=== PATIENT | male | born 1950 | race Hispanic/Latino ===

== ENCOUNTER 2018-07-05 22:08 | Inpatient (IN) | payer MEDICARE, OTHER ==
[~2018-07-05] VITALS: Ht 172.7 cm; Wt 93.6 kg
[~2018-07-05 22:08] MED LIST: GLUCOPHAGE XL500 MG PO; Z.0.AMARYL4 MG PO; Z.0.AVODART0.5 MG PO; Z.0.CRESTOR5 MG PO; Z.0.FLOVENT DISKUS50; Z.0.LANTUS100 UNIT/1 SQ; Z.0.LOPRESSOR100 MG PO; Z.0.LOPRESSOR50 MG PO; Z.0.NORVASC10 MG PO; Z.0.PREDNISONE10 MG PO; Z.0.PRINIVIL10 MG PO; Z.0.ULTRAM50 MG PO; Z.0.VICODIN 5-5001 E PO; Z.0.WARFARIN SODIUM5 PO; [UNRECOGNIZED DRUG - OTHER] IV; [UNRECOGNIZED DRUG - OTHER] PO
[2018-07-05] MEDS ORDERED: SODIUM CHLORIDE 0.9% 1000ML 1,000 ML IV STA (22:32)
[2018-07-05] MEDS ORDERED: ONDANSETRON HCL INJ 2MG/ML 2ML 2 MG/ML VIAL IV STA (22:32)
[2018-07-05] MEDS ORDERED: PANTOPRAZOLE 40 MG 10ML VIAL IV STA (22:32)
[2018-07-05] MEDS ORDERED: MORPHINE SULFATE 5 MG/ML VIAL IV ONE (23:15)
[2018-07-05 23:16] LABS: BASOPHILS # (AUTO) 0.1 (0.0-0.1); BASOPHILS % 0.5 % (0.0-1.0); EOSINOPHILS # (AUTO) 0.1 (0.0-0.4); EOSINOPHILS % 1.3 % (0.0-6.0); HEMATOCRIT 38.8 % (38.2-49.6); HEMOGLOBIN 13.4 g/dL (14.0-18.0); LYMPHOCYTES # (AUTO) 3.3 (1.0-3.2); LYMPHOCYTES % 33.5 % (18.0-39.1); MEAN CORPUSCULAR HEMOGLOBIN 31.1 pg (28-32); MEAN CORPUSCULAR HGB CONC 34.5 g/dL (31-35); MONOCYTES % 9.7 % (4.4-11.3); NEUTROPHILS # (AUTO) 5.5 (2.1-6.9); NEUTROPHILS % 54.7 % (38.7-80.0); PLATELET COUNT 230 x10e3/uL (140-360); RED BLOOD COUNT 4.31 x10e6/uL (4.3-5.7)
[2018-07-05 23:21] LABS: INR 0.83; PARTIAL THROMBOPLASTIN TIME 30.6 seconds (23.8-35.5); PROTHROMBIN TIME 12.2 seconds (11.9-14.5)
[2018-07-05] MEDS ORDERED: MORPHINE SULFATE INJ 4 MG/ML INJ 1ML ONE (23:25)
[2018-07-05 23:31] LABS: ALBUMIN 4.5 g/dL (3.5-5.0); ALBUMIN/GLOBULIN RATIO 1.2 (0.8-2.0); CALCIUM 10.7 mg/dL (8.4-10.2); CREATININE, SERUM 2.37 mg/dL (0.72-1.25); MAGNESIUM 2.1 MG/DL (1.3-2.1)
[2018-07-05 23:38] LABS: CREATINE KINASE MB 1.5 ng/mL (0-5.0)
[2018-07-06 00:55] LABS: CLARITY,URINE CLOUDY (CLEAR); COLOR,URINE YELLOW (YELLOW); LEUKOCYTE ESTERASE ,URINE 1+ (NEGATIVE); NITRITE,URINE NEGATIVE (NEGATIVE); PROTEIN,URINE DIPSTICK NEGATIVE (NEGATIVE)
[2018-07-06 00:56] LABS: BILIRUBIN,URINE NEGATIVE (NEGATIVE); KETONES,URINE NEGATIVE (NEGATIVE); URINE UROBILINOGEN 0.2 mg/dL (0.2 - 1)
[2018-07-06 01:03] LABS: CHOL/HDL RATIO 4.7 (3.9-4.7); CHOLESTEROL 149 MD/DL (0-199); HDL CHOLESTEROL 32 MG/DL (40-60); TRIGLYCERIDES 687 MG/DL (0-149)
--- NOTE | 2018-07-06 01:12 | Diagnostic Imaging Report ---
CT Abdomen and Pelvis without contrast INDICATION: Mid epigastric pain TECHNIQUE: Thin collimation axial images obtained from the diaphragm to the level of the pubic symphysis without nonionic intravenous contrast. Dose reduction techniques used: Automated exposure control, adjustment of the mAs and/or kVp according to patient size, standardized low-dose protocol, and/or iterative reconstruction technique. RADIATION DOSE: Total DLP: 576.6 mGy*cm Estimated effective dose: (DLP x 0.015 x size factor) mSv CTDIvol has been reviewed. It is below the limits set by the Radiation Protocol Committee (RPC). COMPARISON: None. ABDOMEN FINDINGS: Lung Bases: Clear. The visualized portion of the mediastinum is normal. Liver: Decreased attenuation. No mass. The right lobe measures 20 cm in length. Gallbladder: Present and appears normal. No ductal dilatation. Pancreas: Mild fatty atrophy. No mass or ductal dilatation. Spleen: Normal size without mass. Adrenal Glands: The right adrenal gland is normal. Nodule in the left adrenal gland measures 1.4 x 1.2 cm and 21 Hounsfield units. This is located in the medial limb. Kidneys: Right: No renal calculus. No cortical mass or hydronephrosis Left: No renal calculus. No cortical mass or hydronephrosis Lymph Nodes: No enlarged abdominal or retroperitoneal lymph nodes. Aorta: Normal in diameter with diffuse calcifications. PELVIS FINDINGS: Bowel: Stomach: Distended with fluid, likely water. No mural thickening or perigastric inflammation. No hiatal hernia. Small Bowel: Small bowel loops measure up to 3.9 cm in diameter. Small amount of inspissated enteric material. Round, intraluminal high attenuating focus in a segment of proximal jejunum measures 9 mm and may represent food or medication. Large Bowel: Diverticulosis coli, particularly of the sigmoid colon without associated inflammation. Appendix: Normal. Bladder: Well distended with mild circumferential mural thickening. The prostate gland measures 5.6 x 6.0 cm with calcifications of the transition zone. Ureters: No ureteral dilatation or calculus. Peritoneum/retroperitoneum: No free fluid or fluid collection. Bones: Interbody fusion of L5-S1. No compression deformities or listhesis. Soft tissues: Fat-containing umbilical hernia has an aperture of 17 mm. IMPRESSION: 1. Distended small bowel loop containing inspissated enteric material suggestive of mild ileus or very low-grade partial small bowel obstruction. Food or medication in the proximal jejunum as described above. 2. Diverticulosis coli. No evidence for bowel obstruction or inflammation. 3. Steatosis. 4. Prostate hypertrophy. 5. Left adrenal nodule, higher in attenuation than what would be expected for an adenoma. Recommend further characterization with MRI of the adrenal glands on an outpatient basis. Signed by: Dr. Darcy Parra MD on 07/06/2018 1:09 AM
--- NOTE | 2018-07-06 01:14 | Diagnostic Imaging Report ---
EXAMINATION: CHEST SINGLE (PORTABLE) COMPARISON: Chest x-ray 10/06/2011 INDICATION: Chest/midepigastric pain ^ABD/CP ^[id number] ^0030 DISCUSSION: Frontal view of the chest obtained at 0033 hours. HEART AND MEDIASTINUM: The cardiomediastinal silhouette is unremarkable. LINES: None. LUNGS: Lung volumes are low. Mild bibasilar atelectasis. No pneumonia or pulmonary edema. PLEURA: No pleural effusion or pneumothorax. BONES AND SOFT TISSUES: No focal osseous lesion. The soft tissues are normal. IMPRESSION: Low lung volumes. No acute cardiopulmonary process. Signed by: Dr. Darcy Parra MD on 07/06/2018 1:10 AM
[2018-07-06 01:17] LABS: B-TYPE NATRIURETIC PEPTIDE2 27.5 pg/mL (0-100)
[2018-07-06 01:34] LABS: BACTERIA,URINE MANY /HPF; EPITHELIAL CELLS,URINE FEW /LPF; RBC,URINE 0-5 /HPF (0-5); WBC,URINE (MAN) 21-50 /HPF (0-5)
[2018-07-06] MEDS ORDERED: PROMETHAZINE 12.5MG/ NACL 0.9% 12.5 MG/50 ML BAG IV PRN (02:30)
[2018-07-06] MEDS ORDERED: ONDANSETRON HCL INJ 2MG/ML 2ML 2 MG/ML VIAL IV PRN (02:30)
--- OUTSIDE RECORDS SUMMARY | 2018-07-06 02:36 | XMS REPORT ---
Author Author [facility] Address Unknown Phone Unavailable Care Team Providers Care [facility] Name Role Phone Pauline BA Unavailable Unavailable Problems This patient has no known problems. Allergies, Adverse Reactions, Alerts This patient has no known allergies or adverse reactions. Medications This patient has no known medications. Results Test Description Test Time Test Comments Text Results Atomic Results Result Comments CHEST SINGLE (PORTABLE) 2018-07-06 01:09:00 [place] [address] Patient Name: MIKE RAINEY MR #: [id number] : 1950 Age/Sex: 67/M Req #: [id number] Adm Physician: Ordered by: ISMAEL BA MD Report #: [id number] Location: ER Room/Bed: Procedure: [id number] DX/CHEST SINGLE (PORTABLE) Exam Date: 07/06/18 Exam Time: 0030 REPORT STATUS: Signed EXAMINATION: CHEST SINGLE (PORTABLE) COMPARI SON: Chest x-ray 10/06/2011 INDICATION: Chest/midepigastric pain ABD/CP [id number] 0030 DISCUSSION: Frontal view of the chest obtained at 0033 hours. HEART AND MEDIASTINUM: The cardiomediastinal silhouette is unremarkable. LINES: None. LUNGS: Lung volumes are low. Mild bibasilar atelectasis. No pneumonia or pulmonary edema. PLEURA: No pleural effusion or pneumothorax. BONES AND SOFT TISSUES: No focal osseous lesion. The soft tissues are normal. IMPRESSION: Low lung volumes. No acute cardiopulmonary process. Signed by: Dr. Laureen Parra MD on 07/06/2018 1:10 AM Dictated By: LAUREEN PARRA MD 9 Transcribed By: JOSÉ MIGUEL on 07/06/18109 COPY TO: ISMAEL BA MD CT ABDOMEN/PELVIS WO 2018-07-06 00:45:00 [place] [address] Patient Name: MIKE RAINEY MR #: [id number] : 1950 Age/Sex: 67/M Req #: [id number] Adm Physician: Ordered by: ISMAEL BA MD Report #: [id number] Location: ER Room/Bed: Procedure: [id number] CT/CT ABDOMEN/PELVIS WO Exam Date: 07/06/18 Exam Time: 0022 REPORT STATUS: Signed CT Abdomen and Pelvis without contrast INDICATION: Mid epigastric pain TECHNIQUE: Thin collimation axial images obtained from the diaphragm to the level of the pubic symphysis without nonionic intravenous contrast. Dose reduction techniques used: Automated exposure control, adjustment of the mAs and/or kVp according to patient size, standardized low- dose protocol, and/or iterative reconstruction technique. RADIATION DOSE: Total DLP: 576.6 mGy*cm Estimated effective dose: (DLP x 0.015 x size factor) mSv CTDIvol has been reviewed. It is below the limits set by the Radiation Protocol Committee (RPC). COMPARISON: None. ABDOMEN FINDINGS: Lung Bases: Clear. The visualized portion of the mediastinum is normal. Liver: Decreased attenuation. No mass. The right lobe measures 20 cm in length. Gallbladder: Present and appears normal. No ductal dilatation. Pancreas: Mild fatty atrophy. No mass or ductal dilatation. Spleen: Normal size without mass. Adrenal Glands: The right adrenal gland is normal. Nodule in the left adrenal gland measures 1.4 x 1.2 cm and 21 Hounsfield units. This is located in the medial limb. Kidneys: Right: No renal calculus. No cortical mass or hydronephrosis Left: No renal calculus. No cortical mass or hydronephrosis Lymph Nodes: No enlarged abdominal or retroperitoneal lymph nodes. Aorta: Normal in diameter with diffuse calcifications. PELVIS FINDINGS: Bowel: Stomach: Distended with fluid, likely water. No mural thickening or perigastric inflammation. No hiatal hernia. Small Bowel: Small bowel loops measure up to 3.9 cm in diameter. Small amount of inspissated enteric material. Round, intraluminal high attenuating focus in a segment of proximal jejunum measures 9 mm and may represent food or medication. Large Bowel: Diverticulosis coli, particularly of the sigmoid colon without associated inflammation. Appendix: Normal. Bladder: Well distended with mild circumferential mural thickening. The prostate gland measures 5.6 x 6.0 cm with calcifications of the transition zone. Ureters: No ureteral dilatation or calculus. Peritoneum/retroperitoneum: No free fluid or fluid collection. Bones: Interbody fusion of L5-S1. No compression deformities or listhesis. Soft tissues: Fat-containing umbilical hernia has an aperture of 17 mm. IMPRESSION: 1. Distended small bowel loop containing inspissated enteric material suggestive of mild ileus or very low-grade partial small bowel obstruction. Food or medication in the proximal jejunum as described above. 2. Diverticulosis coli. No evidence for bowel obstruction or inflammation. 3. Steatosis. 4. Prostate hypertrophy. 5. Left adrenal nodule, higher in attenuation than what would be expected for an adenoma. Recommend further characterization with MRI of the adrenal glands on an outpatient basis. Signed by: Dr. Laureen Parra MD on 07/06/2018 1:09 AM D ictated By: LAUREEN PARRA MD 8 Transcribed By: JOSÉ MIGUEL on 07/06/18108 COPY TO: ISMAEL BA MD
[2018-07-06] MEDS: SODIUM CHLORIDE 0.9% 1000ML 1,000 ML IV SCH ×3 (06:07→22:17)
[2018-07-06] MEDS: MORPHINE SULFATE INJ 4 MG/ML INJ 1ML IV PRN ×3 (06:07→20:15)
--- NOTE | 2018-07-06 07:06 | NUR ---
WALKING ROUNDS WITH ELIE YEE
[2018-07-06 07:07] LABS: CREATINE KINASE MB 1.3 ng/mL (0-5.0)
[2018-07-06] MEDS: HEPARIN SOD (PORCINE) 5,000 UNIT/ML VIAL SC SCH ×2 (09:00→21:20)
[2018-07-06] MEDS ORDERED: METOPROLOL TARTRATE 50 MG TAB PO SCH (09:00)
[2018-07-06] MEDS ORDERED: HYDRALAZINE HCL PO SCH ×2 (09:00)
[2018-07-06] MEDS ORDERED: ISOSORB DINIT PO SCH ×2 (09:00)
[2018-07-06] MEDS ORDERED: METOPROLOL TARTRATE 100 MG PO SCH (09:00)
--- NOTE | 2018-07-06 09:08 | NUR ---
Call placed to Dr. Lantigua' office for po medication administration.
--- NOTE | 2018-07-06 09:25 | NUR ---
Cristel from Dr. Lantigua' office called back.
--- NOTE | 2018-07-06 09:28 | NUR ---
Dr. Lantigua called to report the pt can be given his po medications.
[2018-07-06] MEDS: ASPIRIN 81 MG ENTERIC COATED PO SCH (09:46)
[2018-07-06] MEDS: DOCUSATE SODIUM 100 MG CAP PO SCH ×2 (09:46→21:18)
[2018-07-06] MEDS: AMLODIPINE BESYLATE 10 MG TAB PO SCH (09:46)
[2018-07-06] MEDS: FAMOTIDINE 20 MG TAB PO SCH ×2 (09:46→16:42)
[2018-07-06] MEDS: DUTASTERIDE 0.5 MG CAP PO SCH (10:07)
[2018-07-06] MEDS: SENNOSIDES 8.6 MG TAB PO SCH ×2 (10:07→21:19)
--- NOTE | 2018-07-06 12:50 | NUR ---
Pt noted to be resting in bed with eyes closed.
[2018-07-06] MEDS ORDERED: LEVEMIR SQ (13:08)
--- NOTE | 2018-07-06 13:09 | NUR ---
Pt positioned to comfort, lights turned off and the door is closed to reduce stimuli.
[2018-07-06 15:13] LABS: CREATINE KINASE MB 1.3 ng/mL (0-5.0)
--- NOTE | 2018-07-06 15:31 | NUR ---
ARRIVED VIA WC FROM ER, AA&OX3, RA, TELE IN PLACE, DENIES CP AT THIS TIME, ORIENTED TO ROOM AND CALL LIGHT, CALL LIGHT WITHIN REACH
[2018-07-06 16:10] VITALS: BP 138/70
--- NOTE | 2018-07-06 16:42 | NUR ---
ATTEMPTED TO VERIFY HOME MEDICATIONS, PT STATES HE IS NOT SURE, THINKS "THEY WROTE THEM CORRECT IN ER", LIST ALREADY RENEWED BY
[2018-07-06 17:44] VITALS: BP 138/70
[2018-07-06] MEDS ORDERED: DEXTROSE 50% SYRINGE 50 ML IV PRN (18:45)
[2018-07-06] MEDS ORDERED: INSULIN REGULAR, HUMAN 100 UNIT/1 ML 3ML VIAL SQ NR (18:45)
--- NOTE | 2018-07-06 18:49 | NUR ---
SPOKE WITH MD LEYVA REGARDING PT ELEVATED BLOOD GLUCOSE, ORDERS NOTED, NOTIFIED PT
[2018-07-06 20:00] VITALS: BP 146/71
[2018-07-06] MEDS ORDERED: HYDRALAZINE HCL 25 MG TAB PO SCH (21:00)
[2018-07-06] MEDS: HYDRALAZINE HCL PO SCH (21:00)
[2018-07-06] MEDS: ISOSORB DINIT PO SCH (21:00)
[2018-07-06] MEDS ORDERED: ISOSORBIDE DINITRATE 20 MG TAB PO SCH (21:00)
[2018-07-06] MEDS: METOPROLOL TARTRATE 50 MG TAB PO SCH (21:18)
[2018-07-06] MEDS: INSULIN REGULAR, HUMAN 100 UNIT/1 ML 3ML VIAL SQ SCH (21:20)
[2018-07-06 21:36] VITALS: BP 146/71
[2018-07-06 23:17] LABS: CREATINE KINASE MB 1.3 ng/mL (0-5.0)
[2018-07-07] VITALS: BP 122/63
[2018-07-07 04:00] VITALS: BP 131/74
--- NOTE | 2018-07-07 06:52 | NUR ---
History and Physical: DOS 07/06/18 at 7a m cc: left abdominal pain for 3 days HPI; 67yoM, PCP , developed left upper abdominal pain for 3 days with n/V. No dirrhea; did have night night sweats. No colonoscopy in past. PMH: HTn, DM, IVDU, cig use, osteomyelitis and diskitis, MRSA septicemia, CKD stage?, left atrial thrombus, BPH PShx: unknown Allergies; see emr F/Sh; quit cigs; occ eoth Meds; see MAR ROS; no f/c/s/DOUGLAS/vision changes/leg pain/back pain/skin rash/vision changes v/s rev'd PE tired appearing anicteric ns1s2 mod bs soft nd; LEFT UPPER ABDOMEN TENDER; no rebound/gaurding no e/t skin dry n. affect labs/meds; revd A/P: 67yoM Abdominal pain Acute gastroenteritis- rehydrate; iv abx HTN- home meds DM- hba1c/lipids Former smoker BPH- flomax prop; scd Dispo; f/u labs Davian Lantigua MD, PhD. DOS 07/06/18 at 7am
--- NOTE | 2018-07-07 06:55 | NUR ---
Discharge Summary: A/P: 67yoM Abdominal pain Acute gastroenteritis- rehydrate; iv abx HTN- home meds DM- hba1c/lipids Former smoker BPH- flomax prop; scd Dispo; f/u labs 07/07/18 Carlos Eduardo- ivf; UTI- abx; f/u labs; Hba1c/TG 7.8/687- use fibrate 07/08 CKD3; Near baseline; d/c home f/u pcp 1 week d/c >35mins Stable Davian Lantigua MD, PhD.
[2018-07-07 06:57] LABS: BASOPHILS % 0.3 % (0.0-1.0); EOSINOPHILS # (AUTO) 0.1 (0.0-0.4); EOSINOPHILS % 2.1 % (0.0-6.0); HEMOGLOBIN 12.1 g/dL (14.0-18.0); LYMPHOCYTES # (AUTO) 2.4 (1.0-3.2); LYMPHOCYTES % 38.4 % (18.0-39.1); MEAN CORPUSCULAR HEMOGLOBIN 30.9 pg (28-32); MEAN CORPUSCULAR HGB CONC 33.6 g/dL (31-35); MEAN CORPUSCULAR VOLUME 92.1 fL (81-99); MONOCYTES # (AUTO) 0.5 (0.2-0.8); MONOCYTES % 8.1 % (4.4-11.3); NEUTROPHILS # (AUTO) 3.1 (2.1-6.9); NEUTROPHILS % 50.9 % (38.7-80.0); PLATELET COUNT 180 x10e3/uL (140-360); RED BLOOD COUNT 3.91 x10e6/uL (4.3-5.7); RED CELL DISTRIBUTION WIDTH 12.8 % (11.7-14.4)
[2018-07-07] MEDS ORDERED: CEFTRIAXONE SOD 1 GM/NS 50 ML 50 ML IV SCH (07:00)
[2018-07-07 07:16] LABS: ALBUMIN 3.6 g/dL (3.5-5.0); ALBUMIN/GLOBULIN RATIO 1.2 (0.8-2.0); ANION GAP 10.3 mmol/L (8-16); CALCIUM 8.8 mg/dL (8.4-10.2); CREATININE, SERUM 1.74 mg/dL (0.72-1.25); POTASSIUM 4.3 mmol/L (3.5-5.1)
--- NOTE | 2018-07-07 07:33 | NUR ---
Rcvd patient in report this am. Patient is asleep in bed at this time. No s/s of distress noted
[2018-07-07 08:09] VITALS: BP 167/77
[2018-07-07] MEDS: SODIUM CHLORIDE 0.9% 1000ML 1,000 ML IV SCH (08:17)
[2018-07-07] MEDS: HYDRALAZINE HCL PO SCH (09:00)
[2018-07-07] MEDS: ISOSORB DINIT PO SCH (09:00)
[2018-07-07] MEDS ORDERED: FENOFIBRATE 145 MG TAB PO SCH ×2 (09:00→21:00)
[2018-07-07] MEDS: SENNOSIDES 8.6 MG TAB PO SCH (09:05)
[2018-07-07] MEDS: ASPIRIN 81 MG ENTERIC COATED PO SCH (09:05)
[2018-07-07] MEDS: AMLODIPINE BESYLATE 10 MG TAB PO SCH (09:05)
[2018-07-07] MEDS: FAMOTIDINE 20 MG TAB PO SCH ×2 (09:05→17:24)
[2018-07-07] MEDS: DUTASTERIDE 0.5 MG CAP PO SCH (09:05)
[2018-07-07] MEDS: METOPROLOL TARTRATE 50 MG TAB PO SCH (09:05)
[2018-07-07] MEDS: DOCUSATE SODIUM 100 MG CAP PO SCH (09:05)
[2018-07-07] MEDS: INSULIN REGULAR, HUMAN 100 UNIT/1 ML 3ML VIAL SQ SCH ×3 (09:14→16:28)
[2018-07-07] MEDS: HEPARIN SOD (PORCINE) 5,000 UNIT/ML VIAL SC SCH (09:15)
[2018-07-07 11:09] VITALS: BP 167/77
[2018-07-07 11:45] VITALS: BP 155/72
[2018-07-07] MEDS ORDERED: METRONIDAZOLE 500MG/NS 100ML 100 ML IV SCH (14:00)
--- NOTE | 2018-07-07 14:08 | NUR ---
CASE MANAGEMENT ASSESSMENT Wheel Tuner to bedside to discuss plan of care with patient/family. CM/SW role and care transitions discussed. Anticipated discharge plan discussed along with duration of care. CM/SW discussed patients right to make decisions in care. CM/SW work hours given. Patient lives: alone Admit/Transfer: thru ED Hospital/ER visits since last admit: last hospitalization 10-15 years ago. no ED visits POA/Emergency contact: daughter Nikia Preciado [phone] Current/Previous Home Health: none PCP/Follow-up Care: Dr. Mckeon; advised pt to follow up with MD within 7 days of discharge. Pt stated he will call his MD office to get an appointment Current/Previous DME: none Medications (referring to index hospitalization or the first time you were in the hospital) a. Were changes made in your medications when you were in the hospital on [date of index hospitalization]? n/a b. Did you understand the changes? n/a c. Were you able to obtain your new medications right away? n/a d. Were you able to take your medications like the doctor wanted you to? n/a e. Did the hospital give you an accurate, easy to understand list of medications when you left? n/a Scale of 1-10 how comfortable does patient feel with disease management in outpatient settin Other Services: none Employment Status: retired Areas of Concerns: ileus, pancreatitis, CP Referral Needs: none Education Needs: medical management IMM/SHRESTHA given and signed (if applicable): IMM Goal for discharge: Home CM/SW left business card at the bedside with contact information. Name and number was also written on the patients whiteboard. Patient verbalized understanding of discussion. CM will follow-up with ongoing discharge and transition of care needs.
--- NOTE | 2018-07-07 15:24 | NUR ---
IMM EXPLAINED, SIGNED BY PT AND PLACED IN CHART COPY TO PT IN CARE TRANSITION FOLDER
[2018-07-07 15:37] VITALS: BP 145/75
[2018-07-07] MEDS ORDERED: FAMOTIDINE20 MG PO (17:28)
[2018-07-07] MEDS ORDERED: ASPIRIN EC81 MG PO (17:28)
[2018-07-07] MEDS ORDERED: COLACE100 MG PO (17:28)
[2018-07-07] MEDS ORDERED: FLAGYL500 MG PO (17:28)
[2018-07-07] MEDS ORDERED: SENOKOT8.6 MG PO (17:28)
[2018-07-07] MEDS ORDERED: FENOFIBRATE145 MG PO (17:28)
--- NOTE | 2018-07-07 17:50 | NUR ---
Removed iV form right AC. Pressure dressing applied.
--- NOTE | 2018-07-07 18:05 | NUR ---
Patient discharged from facility to home. Patient assisted out via staff. reviewed all discharge paperwork, follow up appts and RX's called into the pharmacy. No s/s of distress noted
== END 2018-07-07 18:05 | disposition home or self-care (01) | DRG 683 ==
LOC: ER 22:08 → ERHOLD 07-06 02:32 → MED/SURG 07-06 15:35
PROVIDERS: ADMIT Internal Medicine; ATTEND Internal Medicine
DX: N17.9 Acute kidney failure, unspecified (principal); N39.0 Urinary tract infection, site not specified; K52.9 Noninfective gastroenteritis and colitis, unspecified; E86.0 Dehydration; E11.9 Type 2 diabetes mellitus without complications; N40.0 Benign prostatic hyperplasia without lower urinary tract symptoms; Z87.891 Personal history of nicotine dependence; I12.9 Hypertensive chronic kidney disease with stage 1 through stage 4 chronic kidney disease, or unspecified chronic kidney disease; E11.22 Type 2 diabetes mellitus with diabetic chronic kidney disease; N18.3 Chronic kidney disease, stage 3 (moderate)
CPT/HCPCS: 36415; 71045; 74176; 80053; 80061; 81001; 82150; 82550; 82553; 82948; 83036; 83605; 83690; 83735; 83880; 84484; 85025; 85610; 85730; 93005; 99285; J0696; J1644; J2270; J2405; J7030

== ENCOUNTER 2024-11-11 17:59 | Emergency (ER) | payer MEDICARE ==
[~2024-11-11] VITALS: Ht 172.7 cm; Wt 93.4 kg
[~2024-11-11 17:59] MED LIST changes: +ASPIRIN EC81 MG PO; +BENICAR20 MG PO; +COLACE100 MG PO; +FAMOTIDINE20 MG PO; +FENOFIBRATE145 MG PO; +FLAGYL500 MG PO; +FLOMAX0.4 MG PO; +JARDIANCE25 MG PO; +LEVEMIR SQ; +LIPITOR10 MG PO; +MELOXICAM7.5 MG PO; +MOTRIN200 MG PO; +SENOKOT8.6 MG PO; +TOUJEO SOL300 UNIT/1 SC; +TRULICITY1.5 MG/0.5 SC; +ULTRAM 50MG50 MG PO
[2024-11-11] MEDS ORDERED: LIDOCAINE JELLY 2% 10ML URO-JET ONE (18:30)
[2024-11-11 19:03] LABS: LEUKOCYTE ESTERASE ,URINE TRACE (NEGATIVE); PROTEIN,URINE DIPSTICK 2+ (NEGATIVE)
[2024-11-11 19:04] LABS: URINE UROBILINOGEN 0.2 mg/dL (0.2 - 1)
[2024-11-11 19:16] LABS: YEAST,URINE MODERATE
[2024-11-11 19:24] LABS: BASOPHILS % 0.2 % (0.0-1.0); EOSINOPHILS % 0.6 % (0.0-6.0); LYMPHOCYTES % 7.7 % (18.0-39.1); MONOCYTES % 9.3 % (4.4-11.3); NEUTROPHILS % 81.9 % (38.7-80.0); RED CELL DISTRIBUTION WIDTH 13.6 % (11.7-14.4)
[2024-11-11 19:49] LABS: EST GLOMERULAR FILTRATION RATE 31.0 ML/MIN (>=60)
[2024-11-11 20:40] VITALS: PULSE 79; RESP 17
[2024-11-11] MEDS ORDERED: LEVOFLOXACIN750 MG PO (20:42)
[2024-11-11] MEDS ORDERED: FLUCONAZOLE200 MG PO (20:42)
[2024-11-11] MEDS: ACETAMINOPHEN 325 MG TAB PO ONE (20:45)
[2024-11-11] MEDS ORDERED: FLUCONAZOLE100 MG PO (20:46)
[2024-11-11 21:44] VITALS: TEMP 101.2
[2024-11-11] MEDS: IBUPROFEN 400 MG TAB PO ONE (21:56)
[2024-11-11 22:29] VITALS: BP 152/73; PULSE 84; RESP 19; TEMP 100.5; O2SAT 98
== END 2024-11-11 22:39 | disposition home or self-care (01) ==
LOC: ER 18:37
DX: R33.9 Retention of urine, unspecified (principal); N39.0 Urinary tract infection, site not specified; I10 Essential (primary) hypertension; E11.65 Type 2 diabetes mellitus with hyperglycemia; E78.5 Hyperlipidemia, unspecified
CPT/HCPCS: 36415; 51700; 80053; 81001; 85025; 87086; 99284

== ENCOUNTER → 2025-02-08 | Outpatient (REF) | payer MEDICARE ==
[~2025-02-08] MED LIST changes: +ACETAMINOPHEN-1 EAC3 PO; +AMLODIPINE BESYL5 MG PO; +AUGMENTIN 500-1 EACH PO; +AZO CRANBERRY250 MG PO; +CHOLESTYRAMINE L4 GM PO; +FLUCONAZOLE100 MG PO; +FLUCONAZOLE200 MG PO; +LEVOFLOXACIN750 MG PO; +NIFEDIPINE ER30 M1 PO
[2025-02-08 15:33] LABS: BASOPHILS % 0.3 % (0.0-1.0); EOSINOPHILS % 0.4 % (0.0-6.0); LYMPHOCYTES % 24.7 % (18.0-39.1); MONOCYTES % 5.8 % (4.4-11.3); NEUTROPHILS % 68.4 % (38.7-80.0); RED CELL DISTRIBUTION WIDTH 13.0 % (11.7-14.4)
[2025-02-08 15:47] LABS: INR 1.01
[2025-02-08 15:52] LABS: EST GLOMERULAR FILTRATION RATE 43.0 ML/MIN (>=60)
[2025-02-09 14:40] LABS: EST GLOMERULAR FILTRATION RATE 41.0 ML/MIN (>=60)
== END ==
LOC: RAD 08:00 → EDSTATUS 02-13 07:00
PROVIDERS: ATTEND Urology
DX: Z01.818 Encounter for other preprocedural examination (principal); N40.1 Benign prostatic hyperplasia with lower urinary tract symptoms; Z53.8 Procedure and treatment not carried out for other reasons
CPT/HCPCS: 36415; 71046; 74420; 80048; 85025; 85610; 85730; 93005

== ENCOUNTER 2025-02-09 15:46 | Inpatient (IN) | payer MEDICARE ==
[~2025-02-09] VITALS: Ht 172.7 cm; Wt 93.4 kg
[2025-02-09] VITALS (7 sets, daily range): BP systolic 171–177; BP diastolic 81–82; PULSE 63–67; RESP 18–23; TEMP 98.1–98.7; O2SAT 98–100
[2025-02-09] MEDS: SODIUM CHLORIDE 0.9% 1000ML 1,000 ML IV ONE ×2 (16:55→17:46)
[2025-02-09 16:59] LABS: BASOPHILS % 0.2 % (0.0-1.0); EOSINOPHILS % 0.4 % (0.0-6.0); LYMPHOCYTES % 26.0 % (18.0-39.1); MONOCYTES % 7.5 % (4.4-11.3); NEUTROPHILS % 65.5 % (38.7-80.0); RED CELL DISTRIBUTION WIDTH 12.9 % (11.7-14.4)
[2025-02-09 17:12] LABS: INR 0.97
[2025-02-09 17:19] LABS: EST GLOMERULAR FILTRATION RATE 41.0 ML/MIN (>=60)
[2025-02-09] MEDS ORDERED: DOCUSATE SODIUM 100 MG CAP PO PRN (17:30)
[2025-02-09] MEDS ORDERED: POTASSIUM CHLORIDE 20 MEQ TAB CR PO PRN (17:30)
[2025-02-09] MEDS ORDERED: BENZONATATE 100 MG CAP PO PRN (17:30)
[2025-02-09] MEDS ORDERED: SIMETHICONE 80 MG CHEW PO PRN (17:30)
[2025-02-09] MEDS ORDERED: DEXTROSE 50% SYRINGE 50 ML IV PRN ×3 (17:30→17:45)
[2025-02-09] MEDS ORDERED: ALBUTEROL/IPRATROPIUM 3 ML NEB NEB PRN (17:30)
[2025-02-09] MEDS ORDERED: ACETAMINOPHEN 325 MG TAB PO PRN (17:30)
[2025-02-09] MEDS ORDERED: SODIUM CHLORIDE FLUSH 10 ML SYR INJ PRN (17:30)
[2025-02-09] MEDS ORDERED: LIDOCAINE 4% PATCH TP PRN (17:30)
[2025-02-09] MEDS ORDERED: DIPHENHYDRAMINE HCL 25 MG CAP PO PRN (17:30)
[2025-02-09] MEDS ORDERED: ONDANSETRON HCL INJ 2MG/ML 2ML 2 MG/ML VIAL IV PRN ×2 (17:30)
[2025-02-09] MEDS: INSULIN REGULAR, HUMAN 100 UNIT/1 ML SQ ONE (17:45)
[2025-02-09 19:25] LABS: EST GLOMERULAR FILTRATION RATE 44.0 ML/MIN (>=60)
[2025-02-09] MEDS: SODIUM CHLORIDE 0.9% 1000ML 1,000 ML IV SCH (21:09)
[2025-02-09] MEDS: MELATONIN 5 MG TABLET PO PRN (21:12)
[2025-02-09] MEDS: INSULIN GLARGINE 100 UNITS/ML VIAL SQ SCH (21:38)
[2025-02-09] MEDS: INSULIN LISPRO 100 UNIT/1 ML 3ML VIAL SQ SCH (21:39)
[2025-02-09] MEDS ORDERED: SEVOFLURANE INHAL SOLN 250 ML PEN BTL ONE (22:34)
[2025-02-10] VITALS (11 sets, daily range): BP systolic 145–177; BP diastolic 57–85; PULSE 61–85; RESP 17–18; TEMP 97.6–98.3; O2SAT 96–100
[2025-02-10 06:53] LABS: BASOPHILS % 0.5 % (0.0-1.0); EOSINOPHILS % 0.8 % (0.0-6.0); LYMPHOCYTES % 37.1 % (18.0-39.1); MONOCYTES % 9.2 % (4.4-11.3); NEUTROPHILS % 51.9 % (38.7-80.0); RED CELL DISTRIBUTION WIDTH 12.9 % (11.7-14.4)
[2025-02-10 07:14] LABS: EST GLOMERULAR FILTRATION RATE 57.0 ML/MIN (>=60)
[2025-02-10 07:40] LABS: CHOL/HDL RATIO 3.8 (3.9-4.7); LDL CHOLESTEROL 28.0 MG/DL (60-130); PHOSPHORUS 2.8 MG/DL (2.3-4.7)
[2025-02-10] MEDS: PANTOPRAZOLE SOD 40 MG TABEC PO SCH (08:39)
[2025-02-10] MEDS: SODIUM CHLORIDE 0.9% 1000ML 1,000 ML IV SCH (16:01)
[2025-02-10] MEDS: ATORVASTATIN 40 MG TAB PO SCH (21:20)
[2025-02-10] MEDS: TAMSULOSIN HCL 0.4 MG CAP PO SCH (21:20)
[2025-02-11] VITALS (9 sets, daily range): BP systolic 136–160; BP diastolic 65–77; PULSE 64–87; RESP 18–21; TEMP 98–98.4; O2SAT 96–100
[2025-02-11] MEDS: OLMESARTAN 20 MG TAB PO SCH (09:06)
[2025-02-11] MEDS: AMLODIPINE BESYLATE 5 MG TAB PO SCH (09:06)
[2025-02-11] MEDS ORDERED: SODIUM CHLORIDE 0.9% 100 ML ONE (17:04)
[2025-02-11] MEDS: INSULIN LISPRO 100 UNIT/1 ML 3ML VIAL SQ SCH ×2 (17:12→17:13)
[2025-02-11] MEDS: CEFTRIAXONE 2 GM in SODIUM CHLORIDE 0.9% 100 ML IV SCH (18:18)
[2025-02-11 18:32] LABS: LEUKOCYTE ESTERASE ,URINE NEGATIVE (NEGATIVE); PROTEIN,URINE DIPSTICK 2+ (NEGATIVE)
[2025-02-11 18:33] LABS: URINE UROBILINOGEN 0.2 mg/dL (0.2 - 1)
[2025-02-11 18:47] LABS: YEAST,URINE MANY
[2025-02-11] MEDS: INSULIN GLARGINE 100 UNITS/ML VIAL SQ SCH (21:13)
[2025-02-12] VITALS (9 sets, daily range): BP systolic 129–154; BP diastolic 68–77; PULSE 62–85; RESP 16–20; TEMP 97.9–98.4; O2SAT 95–100
[2025-02-12] MEDS: INSULIN LISPRO 100 UNIT/1 ML 3ML VIAL SQ SCH (16:29)
[2025-02-12] MEDS: INSULIN GLARGINE 100 UNITS/ML VIAL SQ ONE (21:56)
[2025-02-13] VITALS (11 sets, daily range): BP systolic 97–161; BP diastolic 61–79; PULSE 72–89; RESP 16–20; TEMP 96.5–98.6; O2SAT 96–100
[2025-02-13 06:51] LABS: BASOPHILS % 0.2 % (0.0-1.0); EOSINOPHILS % 0.6 % (0.0-6.0); LYMPHOCYTES % 39.7 % (18.0-39.1); MONOCYTES % 7.9 % (4.4-11.3); NEUTROPHILS % 51.2 % (38.7-80.0); RED CELL DISTRIBUTION WIDTH 13.4 % (11.7-14.4)
[2025-02-13] MEDS ORDERED: LIDOCAINE HCL 2% LOCAL INJ 5 ML SDV VIAL INJ ONE ×2 (06:56→08:14)
[2025-02-13] MEDS ORDERED: FENTANYL CITRATE/PF 100MCG/2 ML INJ ONE ×2 (06:56→07:52)
[2025-02-13] MEDS ORDERED: PROPOFOL IV EMULSION 10 MG/ML 20 ML VIAL ONE (06:57)
[2025-02-13] MEDS ORDERED: MIDAZOLAM HCL 2 MG/2 ML VIAL ONE (06:57)
[2025-02-13] MEDS ORDERED: ROCURONIUM BROMIDE 1 ML IV ONE ×2 (06:57→07:56)
[2025-02-13 07:19] LABS: EST GLOMERULAR FILTRATION RATE 54.0 ML/MIN (>=60)
[2025-02-13] MEDS ORDERED: GENTAMICIN SULFATE 40 MG/ML 2 ML VIAL ONE ×2 (07:26→07:27)
[2025-02-13] MEDS ORDERED: SODIUM CHLORIDE 0.9% 100 ML ONE (07:31)
[2025-02-13] MEDS ORDERED: SODIUM CHLORIDE 0.9% INJ 10 ML VIAL ONE (07:41)
[2025-02-13] MEDS ORDERED: PHENYLEPHRINE HCL 1% 10 MG/ML VIAL ONE (07:46)
[2025-02-13] MEDS ORDERED: ACETAMINOPHEN 1000 MG/100 ML 100 ML IV ONE (08:05)
[2025-02-13] MEDS ORDERED: HYDROMORPHONE 2MG/ML ONE (08:22)
[2025-02-13] MEDS ORDERED: SUGAMMADEX SODIUM 200 MG/2 ML VIAL IV ONE (08:54)
[2025-02-13] MEDS ORDERED: EPHEDRINE SULFATE INJ 50 MG/ML VIAL ONE (09:13)
[2025-02-13] MEDS ORDERED: ACETAMINOPHEN 1000 MG/100 ML IV PRN (09:30)
[2025-02-13] MEDS ORDERED: PHENAZOPYRIDINE HCL 100 MG TAB PO PRN (09:30)
[2025-02-13] MEDS: SODIUM CHLORIDE 0.9% 1000ML 1,000 ML IV SCH (09:30)
[2025-02-13] MEDS ORDERED: DIPHENHYDRAMINE HCL 25 MG CAP PO PRN (09:30)
[2025-02-13] MEDS ORDERED: ONDANSETRON HCL INJ 2MG/ML 2ML 2 MG/ML VIAL IV PRN (09:30)
[2025-02-13 10:16] LABS: BASOPHILS % 0.2 % (0.0-1.0); EOSINOPHILS % 0.3 % (0.0-6.0); LYMPHOCYTES % 38.7 % (18.0-39.1); MONOCYTES % 6.3 % (4.4-11.3); NEUTROPHILS % 54.2 % (38.7-80.0); RED CELL DISTRIBUTION WIDTH 13.4 % (11.7-14.4)
[2025-02-13 11:05] LABS: EST GLOMERULAR FILTRATION RATE 50.0 ML/MIN (>=60)
[2025-02-13] MEDS: INSULIN LISPRO 100 UNIT/1 ML 3ML VIAL SQ SCH (16:56)
[2025-02-13] MEDS: SENNA-S TABLET PO SCH (16:56)
[2025-02-13] MEDS: INSULIN GLARGINE 100 UNITS/ML VIAL SQ SCH (20:39)
[2025-02-13] MEDS ORDERED: INSULIN GLARGINE 100 UNITS/ML VIAL SQ SCH (21:00)
[2025-02-14] VITALS (10 sets, daily range): BP systolic 126–160; BP diastolic 62–90; PULSE 71–89; RESP 18–20; TEMP 98.2–98.9; O2SAT 96–99
[2025-02-14 06:24] LABS: BASOPHILS % 0.3 % (0.0-1.0); EOSINOPHILS % 0.4 % (0.0-6.0); LYMPHOCYTES % 27.1 % (18.0-39.1); MONOCYTES % 8.0 % (4.4-11.3); NEUTROPHILS % 63.9 % (38.7-80.0); RED CELL DISTRIBUTION WIDTH 13.9 % (11.7-14.4)
[2025-02-14 07:10] LABS: EST GLOMERULAR FILTRATION RATE 45.0 ML/MIN (>=60)
[2025-02-15] VITALS (12 sets, daily range): BP systolic 152–184; BP diastolic 68–89; PULSE 78–96; RESP 16–20; TEMP 97.3–98.7; O2SAT 96–100
[2025-02-15] MEDS: HYDRALAZINE HCL 20 MG/ML VIAL IV PRN (05:10)
[2025-02-15 07:00] LABS: BASOPHILS % 0.2 % (0.0-1.0); EOSINOPHILS % 0.8 % (0.0-6.0); LYMPHOCYTES % 30.3 % (18.0-39.1); MONOCYTES % 9.1 % (4.4-11.3); NEUTROPHILS % 59.4 % (38.7-80.0); RED CELL DISTRIBUTION WIDTH 14.1 % (11.7-14.4)
[2025-02-15 07:28] LABS: EST GLOMERULAR FILTRATION RATE 46.0 ML/MIN (>=60)
[2025-02-16] VITALS (11 sets, daily range): BP systolic 129–170; BP diastolic 66–81; PULSE 73–94; RESP 17–20; TEMP 97.4–98.5; O2SAT 95–100
[2025-02-16 06:56] LABS: BASOPHILS % 0.2 % (0.0-1.0); EOSINOPHILS % 1.4 % (0.0-6.0); LYMPHOCYTES % 34.1 % (18.0-39.1); MONOCYTES % 10.4 % (4.4-11.3); NEUTROPHILS % 53.7 % (38.7-80.0); RED CELL DISTRIBUTION WIDTH 14.2 % (11.7-14.4)
[2025-02-16 07:17] LABS: EST GLOMERULAR FILTRATION RATE 43.0 ML/MIN (>=60)
[2025-02-16] MEDS: ACETAMINOPHEN/CODEINE 300MG - 30MG TAB PO PRN (09:10)
[2025-02-16] MEDS: NIFEDIPINE CR 30 MG TAB PO SCH (18:20)
[2025-02-17] VITALS (9 sets, daily range): BP systolic 130–144; BP diastolic 64–69; PULSE 81–103; RESP 17–20; TEMP 97.9–98.7; O2SAT 93–100
[2025-02-17 07:02] LABS: BASOPHILS % 0.4 % (0.0-1.0); EOSINOPHILS % 1.9 % (0.0-6.0); LYMPHOCYTES % 26.2 % (18.0-39.1); MONOCYTES % 10.8 % (4.4-11.3); NEUTROPHILS % 60.5 % (38.7-80.0); RED CELL DISTRIBUTION WIDTH 14.2 % (11.7-14.4)
[2025-02-17 07:29] LABS: EST GLOMERULAR FILTRATION RATE 46.0 ML/MIN (>=60)
[2025-02-17] MEDS: LISINOPRIL 2.5 MG TAB PO SCH (08:22)
[2025-02-17] MEDS: FUROSEMIDE INJ 10 MG/ML 4 ML VIAL IV ONE (16:48)
[2025-02-18] VITALS (7 sets, daily range): BP systolic 71–148; BP diastolic 58–71; PULSE 78–95; RESP 16–20; TEMP 97–98.3; O2SAT 94–97
[2025-02-18] MEDS ORDERED: NIFEDIPINE ER30 M1 PO (15:47)
== END 2025-02-18 17:36 | disposition home or self-care (01) | DRG 988 ==
LOC: ER 16:18 → ERHOLD 17:20 → MED/SURG3 20:24
PROVIDERS: ADMIT Internal Medicine; ATTEND Internal Medicine
PROC: 0T7D8ZZ Dilation of Urethra, Via Natural or Artificial Opening Endoscopic (ICD-10-PCS; 2025-02-13)
PROC: BT141ZZ Fluoroscopy of Kidneys, Ureters and Bladder using Low Osmolar Contrast (ICD-10-PCS; 2025-02-13)
PROC: 0VB08ZZ Excision of Prostate, Via Natural or Artificial Opening Endoscopic (ICD-10-PCS; principal; 2025-02-13 07:23)
DX: E11.65 Type 2 diabetes mellitus with hyperglycemia (principal); N13.8 Other obstructive and reflux uropathy; N39.0 Urinary tract infection, site not specified; N17.9 Acute kidney failure, unspecified; E87.5 Hyperkalemia; N40.1 Benign prostatic hyperplasia with lower urinary tract symptoms; I12.9 Hypertensive chronic kidney disease with stage 1 through stage 4 chronic kidney disease, or unspecified chronic kidney disease; E11.22 Type 2 diabetes mellitus with diabetic chronic kidney disease; N18.30 Chronic kidney disease, stage 3 unspecified; Z79.4 Long term (current) use of insulin; Z79.84 Long term (current) use of oral hypoglycemic drugs; Z79.85 Long-term (current) use of injectable non-insulin antidiabetic drugs; R33.9 Retention of urine, unspecified; N45.3 Epididymo-orchitis; I25.10 Atherosclerotic heart disease of native coronary artery without angina pectoris; E78.5 Hyperlipidemia, unspecified; E66.9 Obesity, unspecified; R63.4 Abnormal weight loss; Z71.3 Dietary counseling and surveillance; Z68.31 Body mass index [BMI] 31.0-31.9, adult; R31.29 Other microscopic hematuria; N35.919 Unspecified urethral stricture, male, unspecified site; Z91.148 Patient's other noncompliance with medication regimen for other reason; Z71.81 Spiritual or religious counseling; Z79.899 Other long term (current) drug therapy
CPT/HCPCS: 36415; 74420; 80048; 80053; 80061; 81001; 82948; 83036; 83735; 84100; 84439; 84443; 85025; 85610; 85730; 87086; 87186; 88305; 93005; 94799; 99284; J0360; J0696; J1171; J1580; J1938; J2003; J2250; J2371; J2470; J2543; J7030; J7050